=== PATIENT | male | born 1990 | race Caucasian/White ===

== ENCOUNTER 2024-04-04 20:39 | Emergency (ER) | payer OTHER ==
[2024-04-04 20:48] VITALS: BP 125/76; PULSE 83; RESP 18; TEMP 98.1; BMI 29.0
[2024-04-04] MEDS ORDERED: LIDOCAINE 4% PATCH TP ONE (23:52)
[2024-04-04] MEDS ORDERED: METHOCARBAMOL 500 MG TABLET ONE (23:52)
[2024-04-04] MEDS: LIDOCAINE 5% TOPICAL PATCH TP ONE (23:54)
[2024-04-04] MEDS: METHOCARBAMOL 500 MG TABLET PO ONE (23:54)
[2024-04-05] MEDS ORDERED: LIDOCAINE PATCH REMOVAL MC ONE (11:00)
== END 2024-04-05 00:59 | disposition home or self-care (01) ==
LOC: JER 20:39
DX: M62.838 Other muscle spasm (principal); M54.2 Cervicalgia; R51.9 Headache, unspecified; V43.52XA Car driver injured in collision with other type car in traffic accident, initial encounter; Y92.410 Unspecified street and highway as the place of occurrence of the external cause
CPT/HCPCS: 70450-TC; 99284-25